=== PATIENT | female | born 1960 | race Asian ===

== ENCOUNTER → 2020-09-24 16:20 | Outpatient (CLI) | payer OTHER, SELFPAY ==
--- NOTE | 2020-09-24 | DI.MG.S_ITS ---
BILATERAL DIGITAL SCREENING MAMMOGRAM 3D/2D WITH CAD: 09/24/2020 CLINICAL: Routine screening. Breast cancer. Comparison is made to exams dated: 09/18/2019 mammogram, 07/28/2018 mammogram, and 10/24/2017 mammogram - outside location. There are scattered fibroglandular elements in both breasts. Current study was also evaluated with a Computer Aided Detection (CAD) system. No significant masses, calcifications, or other findings are seen in either breast. There has been no significant interval change. IMPRESSION: NEGATIVE There is no mammographic evidence of malignancy. A 1 year screening mammogram is recommended. This exam was interpreted at Station ID: [id number]. NOTE: For mammograms, a report in lay terms will be sent to the patient. Approximately 15% of breast malignancies will not be visualized mammographically. In the management of a palpable breast mass, a negative mammogram must not discourage biopsy of a clinically suspicious lesion. Electronically Signed By: Aniya grove/una:09/24/2020 16:59:40 letter sent: Normal Exam ACR BI-RADS Category 1: Negative [id number]
== END ==
PROVIDERS: Referring Provider Family Medicine; Visit Provider Family Medicine
DX: Z12.31 Encounter for screening mammogram for malignant neoplasm of breast (principal); Z85.3 Personal history of malignant neoplasm of breast
CPT/HCPCS: 77063; 77067

== ENCOUNTER → 2021-10-14 15:02 | Outpatient (CLI) | payer OTHER, SELFPAY ==
--- NOTE | 2021-10-14 15:05 | DI.MG.S_ITS ---
BILATERAL DIGITAL SCREENING MAMMOGRAM 3D/2D WITH CAD: 10/14/2021 CLINICAL: Routine screening. Breast cancer. Comparison is made to exams dated: 09/24/2020 mammogram - [facility], 09/18/2019 mammogram, and 07/28/2018 mammogram - outside location. There are scattered fibroglandular elements in both breasts. Current study was also evaluated with a Computer Aided Detection (CAD) system. There is an oval equal density focal asymmetry with an obscured and indistinct margin in the left breast at 2 o'clock anterior depth. No other significant masses, calcifications, or other findings are seen in either breast. IMPRESSION: INCOMPLETE: NEEDS ADDITIONAL IMAGING EVALUATION The oval equal density focal asymmetry in the left breast is indeterminate. Mediolateral and spot compression views as well as additional views with possible ultrasound are recommended. This exam was interpreted at Station ID: [id number]. NOTE: For mammograms, a report in lay terms will be sent to the patient. Approximately 15% of breast malignancies will not be visualized mammographically. In the management of a palpable breast mass, a negative mammogram must not discourage biopsy of a clinically suspicious lesion. Electronically Signed By: Ilan maciel/una:10/15/2021 07:56:55 copy to: DANIAL CORRALES letter sent: Additional Imaging Needed ACR BI-RADS Category 0: Incomplete [id number]
== END ==
DX: Z12.31 Encounter for screening mammogram for malignant neoplasm of breast (principal); Z80.3 Family history of malignant neoplasm of breast
CPT/HCPCS: 77063; 77067

== ENCOUNTER → 2021-11-26 14:09 | Outpatient (CLI) | payer OTHER, SELFPAY ==
--- NOTE | 2021-11-26 | DI.MG.S_ITS ---
UNILATERAL LEFT DIGITAL DIAGNOSTIC MAMMOGRAM 3D/2D WITH ADDITIONAL VIEWS: 11/26/2021 CLINICAL: Additional evaluation requested from prior study. Comparison is made to exams dated: 10/14/2021 mammogram, 09/24/2020 mammogram - [facility], 09/18/2019 mammogram, and 07/28/2018 mammogram - outside location. There are scattered fibroglandular elements in left breast. There is an oval equal density focal asymmetry with an indistinct margin in the left breast at 4 o'clock anterior depth. This is seen in additional views. No other significant masses or calcifications are seen in the breast. IMPRESSION: INCOMPLETE: NEEDS ADDITIONAL IMAGING EVALUATION The oval equal density focal asymmetry in the left breast is indeterminate. An ultrasound is recommended. This exam was interpreted at Station ID: [id number]. NOTE: For mammograms, a report in lay terms will be sent to the patient. Approximately 15% of breast malignancies will not be visualized mammographically. In the management of a palpable breast mass, a negative mammogram must not discourage biopsy of a clinically suspicious lesion. Electronically Signed By: Zaid clayton/una:11/26/2021 15:47:02 copy to: DANIAL CORRALES ACR BI-RADS Category 0: Incomplete [id number]
--- NOTE | 2021-11-26 | DI.US.S_ITS ---
LIMITED ULTRASOUND OF LEFT BREAST AND AXILLA: 11/26/2021 CLINICAL: Patient returns today to evaluate a focal asymmetry in the left breast. Comparison is made to exams dated: 11/26/2021 mammogram, 10/14/2021 mammogram, 09/24/2020 mammogram - [facility], and 07/28/2018 mammogram - outside location. Color flow ultrasound of the left breast 4 o'clock, and axilla regions was performed. Kim scale images of the real-time examination were reviewed. There is an oval mass with an indistinct margin in the left breast at 4 o'clock posterior depth. This oval mass is hypoechoic. This correlates with mammography findings. Color flow imaging demonstrates that there is vascularity present. No significant abnormalities were seen sonographically in the left axilla. IMPRESSION: SUSPICIOUS OF MALIGNANCY The oval mass in the left breast is suspicious of malignancy. An ultrasound guided biopsy is recommended. The findings and recommendations were discussed with the patient by the onsite radiologist, Dr. Calloway, at the time of the exam. This exam was interpreted at Station ID: [id number]. Electronically Signed By: Zaid clayton/una:11/26/2021 15:49:55 copy to: DANIAL CORRALES letter sent: Biopsy Required Ultrasound BI-RADS: 4 Suspicious for malignancy
== END ==
DX: R92.8 Other abnormal and inconclusive findings on diagnostic imaging of breast (principal); N63.23 Unspecified lump in the left breast, lower outer quadrant
CPT/HCPCS: 76642; 77065; G0279

== ENCOUNTER → 2022-01-12 10:41 | Outpatient (CLI) | payer OTHER, SELFPAY | DX: N63.15 Unspecified lump in the right breast, overlapping quadrants (principal) | CPT/HCPCS: 77065 ==

== ENCOUNTER → 2022-01-21 12:55 | Outpatient (CLI) | payer OTHER, SELFPAY ==
--- NOTE | 2022-01-21 | PATH_ITS ---
[facility] Accession Number: [id number] . 01 Material submitted: . breast - LEFT BREAST MASS 4:00 2 CMFN . 01 Clinical history: . LEFT BREAST CANCER . 02 Diagnosis: Left Breast Mass 4 o'clock, 2 cm from Nipple, Biopsy: Minute focus of atypical ductal hyperplasia (less than 1 mm, involves a single duct). Background of adenosis, stromal fibrosis, and usual ductal hyperplasia. No invasive tumor identified. MRV 01/27/2022 1546 Local . 02 Comment: As part of routine cloth tester quality, this case was also reviewed by Dr. Hartley, who agrees with the interpretation. . 02 Electronically signed: . Emily Yun MD, Pathologist NPI- [id number] . 01 Gross description: . The specimen is received in formalin, labeled with the patient's name, and consists of an aggregate of hemorrhagic fibroadipose tissue fragments measuring 2.3 x 0.7 x 0.3 cm in aggregate. The specimen is filtered and entirely submitted in one cassette. (AM:[id number]) /MRV 01/22/2022 1337 Local . 02 Microscopic: . An immunohistochemistry panel is performed to further evaluate the cells of interest. The control stains show appropriate reactivity. . RESULTS: P63: Positive around cells of interest. SMMS: Positive for cells of interest. . The presence of p63 and myosin immunostaining at the foci of interest mitigate against presence of invasive carcinom and support an interpretation of benign adenosis. . . * This test was developed and its performance characteristics determined by [facility]. It has not been cleared or approved by the U.S. Food and Drug Administration. The FDA has determined that such clearance or approval is not necessary. This test is used for clinical purposes. It should not be regarded as investigational or for research . 02 Pathologist provided ICD-10: Z85.3, N63.20 . 02 CPT . 704612, W61903, W09655 Specimen Comment: A courtesy copy of this report has been sent to [phone] Performed at: 01 [facility] [address] [address], [place], [place] [id number] MD Ilan Gaytan MD Phone: [phone] Performed at: [address] [id number] MD Shanice Hartley MD Phone: [phone]
--- NOTE | 2022-01-21 | DI.MG.S_ITS ---
UNILATERAL LEFT DIGITAL DIAGNOSTIC MAMMOGRAM POST-EXCISIONAL BIOPSY: 01/21/2022 CLINICAL: Left breast cancer. Comparison is made to exams dated: 11/26/2021 ultrasound, 11/26/2021 mammogram, and 10/14/2021 mammogram - [facility]. There are scattered fibroglandular elements in left breast. There is a marker clip in the appropriate position in the left breast at 4 o'clock posterior depth. This marker clip placement is at the biopsy site. IMPRESSION: POST PROCEDURE MAMMOGRAM FOR MARKER PLACEMENT There was a successful marker clip placement in the left breast posterior depth. This exam was interpreted at Station ID: [id number]. NOTE: For mammograms, a report in lay terms will be sent to the patient. Approximately 15% of breast malignancies will not be visualized mammographically. In the management of a palpable breast mass, a negative mammogram must not discourage biopsy of a clinically suspicious lesion. Electronically Signed By: Yvette Calloway M.D. ldsanna/penrad:01/21/2022 14:22:33 copy to: DANIAL CORRALES ACR BI-RADS Category Post-procedure mammogram for marker placement
--- NOTE | 2022-01-21 | DI.US.S_ITS ---
ULTRASOUND GUIDED BIOPSY LEFT BREAST USING VACUUM DEVICE WITH MARKING DEVICE INSERTED AND POST DIGITAL MAMMOGRAPHIC IMAGIN01/21/2022 CLINICAL: Left breast mass. PATIENT CONSENT: Risks (minor bleeding, infection, vasovagal reaction and repeat procedure), benefits and alternatives were explained to the patient and written informed consent was obtained. Correlation is made to exams dated: 01/21/2022 mammogram, 11/26/2021 ultrasound, 11/26/2021 mammogram, and 10/14/2021 mammogram - [facility]. An ultrasound guided biopsy using real-time ultrasound was performed for the indistinct oval mass located in the left breast at 4 o'clock posterior depth. The skin was prepped in the usual manner. Local anesthetic was administered to the access site. A skin antonio was made in the breast. The abnormality was approached from the lateral aspect. A 13 gauge biopsy needle was placed adjacent to the abnormality under ultrasound guidance. Once the needle was documented to be in the correct location, three specimens were obtained using the Mammotome biopsy system. A Celero biopsy clip was inserted into the biopsy cavity. A skin closure strip was applied to the access site. Post procedure digital mammographic imaging demonstrates the location device at the targeted area. The specimens were sent to the laboratory for pathological analysis. IMPRESSION: ULTRASOUND GUIDED BIOPSY HIGH RISK BENIGN Ultrasound guided biopsy of the mass in the left breast at 4 o'clock posterior depth was successful. Pathology indicates high risk benign atypical ductal hyperplasia (ADH), adenosis, stromal fibrosis,and usual ductal hyperplasia. Pathology results are concordant with imaging findings. A surgical consultation is recommended. This exam was interpreted at Station ID: [id number]. Yvette Hartley M.D. [facility],aty/:02/02/2022 17:14:41 copy to: DANIAL CORRALES
== END ==
PROVIDERS: PCP Family Medicine
DX: N60.22 Fibroadenosis of left breast (principal); N60.32 Fibrosclerosis of left breast; N62 Hypertrophy of breast; Z85.3 Personal history of malignant neoplasm of breast
CPT/HCPCS: 19083; 77065

== ENCOUNTER → 2024-09-18 11:44 | Outpatient (CLI) | payer MEDICARE, OTHER, SELFPAY ==
--- NOTE | 2024-09-18 11:46 | DI.RAD.S_ITS ---
PROCEDURE: XR CHEST 2V INDICATIONS: cough TECHNIQUE: 2 views of the chest were acquired. COMPARISON: None. FINDINGS: Surgical changes and devices: Right chest wall surgical clips. Right upper quadrant surgical clips. Lungs and pleura: There appears to be hazy opacity adjacent to the right heart border.. No pleural effusions or pneumothorax. Mediastinum: Mediastinal contours are normal. Heart size is normal. Bones and chest wall: No suspicious bony abnormalities. Soft tissues appear unremarkable. IMPRESSION: There appears to be a hazy opacity adjacent to the right heart border concerning for right middle lobe pneumonia. Recommend follow-up imaging after treatment. Dictated by: Beni Knight M.D. on 09/18/2024 at 15:42 Approved by: Beni Knight M.D. on 09/18/2024 at 15:43
== END ==
LOC: RAD 11:45
PROVIDERS: PCP Family Medicine; Referring Provider Family Medicine; Visit Provider Family Medicine
DX: R05.9 Cough, unspecified (principal)
CPT/HCPCS: 71046

== ENCOUNTER → 2024-09-21 08:49 | Outpatient (CLI) | payer MEDICARE, OTHER, SELFPAY ==
[2024-09-21 09:44] LABS: Add Manual Diff / Slide Review NO; Basophils Absolute Auto 100 /uL (0-100); Basophils Percent Auto 1.7 % (0-2); Eosinophils Absolute Auto 800 /uL (0-450); Eosinophils Percent Auto 11.5 % (2-4); Hematocrit 40.2 % (36-46); Hemoglobin 13.4 g/dL (12.0-16.0); Lymphocytes Absolute Auto 1700 /uL (1100-4500); Mean Corpuscular HGB Conc 33.4 % (30-36); Mean Corpuscular Hemoglobin 28.7 PG (26-34); Monocytes Absolute Auto 300 /uL (0-900); Monocytes Percent Auto 5.2 % (3-14); Neutrophils Absolute Auto 3700 /uL (1500-7000); Neutrophils Percent Auto 55.6 % (50-75); Platelet Count 277 X10^3/uL (150-400); Red Blood Cell Count 4.67 X10^6/uL (4.0-5.2); White Blood Cell Count 6.7 X10^3/uL (4.5-11.0)
[2024-09-21 10:02] LABS: Alanine Aminotransferase 35 IU/L (<35); Albumin 4.4 g/dL (3.5-5.0); Albumin Globulin Ratio 1.4 (1.0-2.8); Alkaline Phosphatase 85 U/L (38-126); Aspartate Aminotransferase 34 IU/L (14-36); BUN Creatinine Ratio 20.6 (6-22); Bilirubin Total 0.5 mg/dL (0.2-1.3); Blood Urea Nitrogen 14 mg/dL (7-17); Calcium 9.7 mg/dL (8.4-10.2); Carbon Dioxide 25 mmol/L (22-32); Chloride 109 mmol/L (98-107); Cholesterol 171 mg/dL (140-199); Estimated Glomerular Filt Rate > 60 mL/min (>60); Globulin 3.1 g/dL (1.7-4.1); Glucose 101 mg/dL (80-110); HDL Cholesterol 43 mg/dL (40-60); HEMOLYSIS < 15 (0-50); LDL Cholesterol Calculated 104 mg/dL (<100); Potassium 4.4 mmol/L (3.4-5.1); Sodium 142 mmol/L (137-145); Total Protein 7.5 g/dL (6.3-8.2); Triglycerides 122 mg/dL (35-150)
--- NOTE | 2024-09-21 11:40 | DI.RAD.S_ITS ---
PROCEDURE: XR DEXA AXIAL SKELETON INDICATIONS: Osteoporosis COMPARISON: [facility], CR, DEXA COMPLETE, 11/11/2023, 8:44. FINDINGS: Lumbar Spine: Bone mineral density 0.840 g/cm2, T score -1.9, unchanged. Left Hip: Bone mineral density 0.862 g/cm2, T score -0.7, compared to -0.9. Left Femoral Neck: Bone mineral density 0.616 g/cm2, T score -2.1, compared to -1.7. Right Hip: Bone mineral density 0.834 g/cm2, T score -0.9, compared to -0.8. Right Femoral Neck: Bone mineral density 0.661 g/cm2, T score -1.7, unchanged. Fracture Risk Calculation (when applicable): 10-year fracture risk of a major osteoporotic fracture 6 percent and of a hip fracture 0.9 percent. (T score greater or equal to -1.0 to: NORMAL) (T score from -1.1 to -2.4: OSTEOPENIA) (T score less than or equal to -2.5: OSTEOPOROSIS) IMPRESSION: Moderate to severe osteopenia in the left femoral neck progressive compared to prior exam. Lumbar spine as well as right femoral neck demonstrate relatively stable moderate osteopenia. Follow-up guidelines as follows: Osteoporosis: Consider a repeat DEXA and Vertebral Fracture Assessment (VFA) exam in 2 years or sooner if medically necessary, to reassess this patient's status. Osteopenia: Consider a repeat DEXA in 2-3 years to reassess this patient's status, or if there is a new clinical indication. Normal: Consider a repeat DEXA in 5 years or sooner, or if there is a new clinical indication. All treatment decisions require clinical judgment and consideration of individual patient factors, including patient preferences, comorbidities, previous drug use, risk factors not captured in the FRAX model (e.g., frailty, falls, vitamin D deficiency, increased bone turnover, interval significant decline in bone density ) and possible under- or over-estimation of fracture risk by FRAX. In addition, the NOF Guide recommends that FDA-approved medical therapies be considered in postmenopausal women and men age >= 50 years with a: * Hip or vertebral (clinical or morphometric) fracture * T-score of <=-2.5 at the spine or hip * Ten-year fracture probability by FRAX of >= 3% for hip fracture or >=20% for major osteoporotic fracture. People with diagnosed cases of osteoporosis or at high risk for fracture should have regular bone mineral density tests. For patients eligible for Medicare, routine testing is allowed once every 2 years. The testing frequency can be increased to one year for patients who have rapidly progressing disease, those who are receiving or discontinuing medical therapy to restore bone mass, or have additional risk factors. Dictated by: Ansley Cash M.D. on 09/21/2024 at 17:00 Approved by: Ansley Cash M.D. on 09/21/2024 at 17:03
== END ==
PROVIDERS: PCP Family Medicine; Referring Provider Family Medicine; Visit Provider Family Medicine
DX: I10 Essential (primary) hypertension (principal); M81.0 Age-related osteoporosis without current pathological fracture
CPT/HCPCS: 36415; 77080; 80053; 80061; 85025

== ENCOUNTER → 2024-11-09 12:47 | Outpatient (CLI) | payer MEDICARE, OTHER, SELFPAY ==
--- NOTE | 2024-11-09 12:49 | DI.RAD.S_ITS ---
PROCEDURE: XR CHEST 2V INDICATIONS: cough, 1 mo follow up TECHNIQUE: 2 views of the chest were acquired. COMPARISON: [facility], CR, XR CHEST 2V, 09/18/2024, 11:56. FINDINGS: Surgical changes and devices: Surgical clips right axilla and left breast. Lungs and pleura: Lungs are clear except for a mild chronic interstitial prominence. No pleural effusions or pneumothorax. Mediastinum: Mediastinal contours are normal. Heart size is normal. Bones and chest wall: No suspicious bony abnormalities. Soft tissues appear unremarkable. IMPRESSION: Chronic mild interstitial prominence. Surgical clips bilaterally as discussed. No pneumonia found. Dictated by: Derrick Lopez M.D. on 11/09/2024 at 13:44 Approved by: Derrick Lopez M.D. on 11/09/2024 at 13:45
== END ==
PROVIDERS: PCP Family Medicine; Referring Provider Family Medicine; Visit Provider Family Medicine
DX: R05.3 Chronic cough (principal)
CPT/HCPCS: 71046

== ENCOUNTER → 2024-11-13 15:15 | Outpatient (CLI) | payer MEDICARE, OTHER, SELFPAY ==
--- NOTE | 2024-11-13 15:17 | DI.CT.S_ITS ---
PROCEDURE: CT CHEST WO CON INDICATIONS: Shortness of breath TECHNIQUE: Noncontrast 5 mm thick sections acquired from the pulmonary apices to the posterior costophrenic angles. 1 mm lung window, 5 mm thick coronal and sagittal and 7 mm axial MIP reformats were then acquired. For radiation dose reduction, the following was used: automated exposure control, adjustment of mA and/or kV according to patient size. COMPARISON: [facility], CR, XR CHEST 2V, 11/09/2024, 13:03. [facility], CR, XR CHEST 2V, 09/18/2024, 11:56. FINDINGS: Image quality: Fair; respiratory motion artifact limits evaluation. Thyroid: Within normal limits. Cardiac: Heart size within normal limits. No pericardial effusion. Mild left anterior descending and left circumflex coronary artery calcifications. Aorta: Thoracic aortic diameter within normal limits. Mild atherosclerosis. Mildly tortuous aortic arch. Pulmonary Artery: Main pulmonary artery diameter within normal limits. Lungs: Tree-in-bud nodular opacification, predominantly in the right middle lobe and (3/168-193). Less conspicuous areas of tree-in-bud opacification in the dependent lower lobes (3/189). Pleura: No pneumothorax or pleural effusion. Airways: The trachea and mainstem bronchi are patent. Mild bronchiolectasis involving the right middle lobe and lingula. Overall, mild bronchiolar wall thickening. Lymph Nodes: Scattered mediastinal lymphadenopathy (for example, a 1 cm short axis right lower paratracheal node (2/36)), likely reactive. No other mediastinal, hilar, or axillary lymphadenopathy. Esophagus: Small hiatal hernia, with mildly patulous and air-filled esophagus. Bones: No acute osseous abnormality. Upper Abdomen: Status post cholecystectomy. Soft tissues: Right axillary and left breast dystrophic calcifications (2/33; 2/63). IMPRESSION: 1. Pulmonary and airway findings, which can be seen with infectious bronchiolitis. Consider the possibility of nontuberculous mycobacterial infection. 2. Small hiatal hernia with esophageal findings, which can be seen with esophageal reflux disease. Dictated by: Jesus Faulkner M.D. on 11/14/2024 at 8:57 Approved by: Jesus Faulkner M.D. on 11/14/2024 at 9:05
== END ==
PROVIDERS: PCP Family Medicine; Referring Provider Family Medicine; Visit Provider Family Medicine
DX: J47.9 Bronchiectasis, uncomplicated (principal); K44.9 Diaphragmatic hernia without obstruction or gangrene; R59.0 Localized enlarged lymph nodes; R06.02 Shortness of breath; I25.10 Atherosclerotic heart disease of native coronary artery without angina pectoris; I70.0 Atherosclerosis of aorta; Z90.49 Acquired absence of other specified parts of digestive tract
CPT/HCPCS: 71250

== ENCOUNTER → 2024-11-17 08:43 | Outpatient (CLI) | payer MEDICARE, OTHER, SELFPAY | LOC: LAB 08:48 | PROVIDERS: PCP Family Medicine; Referring Provider Family Medicine; Visit Provider Family Medicine | DX: R06.02 Shortness of breath (principal); R93.89 Abnormal findings on diagnostic imaging of other specified body structures; R05.9 Cough, unspecified | CPT/HCPCS: 87070; 87205 ==

== ENCOUNTER → 2024-11-21 16:14 | Outpatient (CLI) | payer MEDICARE, OTHER, SELFPAY | PROVIDERS: PCP Family Medicine; Referring Provider Family Medicine; Visit Provider Family Medicine | DX: R06.02 Shortness of breath (principal); J98.8 Other specified respiratory disorders; R94.2 Abnormal results of pulmonary function studies | CPT/HCPCS: 94060; 94726; 94729 ==

== ENCOUNTER → 2024-11-23 11:43 | Outpatient (CLI) | payer MEDICARE, OTHER, SELFPAY ==
--- NOTE | 2024-11-23 11:45 | DI.RAD.S_ITS ---
PROCEDURE: XR CHEST 2V INDICATIONS: worsening cough, fatigue r/o repeat pneumonia TECHNIQUE: 2 views of the chest were acquired. COMPARISON: [facility], CR, XR CHEST 2V, 11/09/2024, 13:03. FINDINGS: Surgical changes and devices: None. Lungs and pleura: Lungs are clear. No pleural effusions or pneumothorax. Mediastinum: Mediastinal contours are normal. Heart size is normal. Bones and chest wall: No suspicious bony abnormalities. Soft tissues appear unremarkable. Right lateral chest wall surgical clips redemonstrated. IMPRESSION: No acute cardiopulmonary abnormality is seen. Dictated by: Jesus Bird M.D. on 11/24/2024 at 7:41 Approved by: Jesus Bird M.D. on 11/24/2024 at 7:43
== END ==
PROVIDERS: PCP Family Medicine; Referring Provider Nurse Practitioner Family; Visit Provider Nurse Practitioner Family
DX: R06.2 Wheezing (principal)
CPT/HCPCS: 71046

== ENCOUNTER → 2025-01-02 16:51 | Outpatient (CLI) | payer MEDICARE, OTHER, SELFPAY ==
--- NOTE | 2025-01-02 16:52 | DI.MG.S_ITS ---
MM screening mammo BI: 01/02/2025. BI-RADS: 2 CLINICAL: 64-year old female for bilateral screening mammogram. No Tyrer-Cuzick risk score calculation due to the patient's personal history of breast cancer. Patient reports a history of right breast carcinoma diagnosed at age 47. Status-post right lumpectomy with radiation therapy and hormonal therapy. No first-degree family history of breast cancer. The patient had a prior left breast biopsy. PRIOR EXAMS 10/27/2023, 10/26/2022, 04/12/2022, 01/21/2022, 11/26/2021, 10/14/2021, 09/24/2020, 08/08/2015. MAMMOGRAPHY TECHNIQUE: 2D and 3D (tomosynthesis) digital mammographic views obtained, with additional images as needed for full coverage. Current study was also evaluated with a Computer Aided Detection (CAD) system. DENSITY B. There are scattered areas of fibroglandular density. MAMMOGRAPHY FINDINGS Bilateral: Benign-appearing post-surgical changes noted. There are no suspicious masses, calcifications, or other findings in the breast. No significant change from comparison. IMPRESSION: * No evidence of malignancy with benign findings. RECOMMENDATIONS Bilateral * Annual screening mammography. OVERALL ASSESSMENT CATEGORY BI-RADS-2: Benign. The [employer] recommends annual screening mammography beginning at age 40 for women with average risk of breast cancer. ELECTRONICALLY SIGNED: Sandra Nieves M.D. on 01/03/2025 at 08:37:38 AM PT Interpreting Station ID: [id number]
== END ==
PROVIDERS: PCP Family Medicine; Referring Provider Family Medicine; Visit Provider Family Medicine
DX: Z12.31 Encounter for screening mammogram for malignant neoplasm of breast (principal); Z85.3 Personal history of malignant neoplasm of breast
CPT/HCPCS: 77063; 77067